=== PATIENT | male | born 1970 | race Caucasian/White ===

== ENCOUNTER 2020-10-10 06:51 | Observation (INO) | payer OTHER ==
[~2020-10-10] VITALS: Ht 185.4 cm; Wt 97.7 kg
[~2020-10-10 06:51] MED LIST: ALLO300T PO; ATOR10TA9 PO; INDO75CA3 PO; LISI-170 PO; OMEP40CA42 PO
--- NOTE | 2020-10-10 07:15 | NUR ---
first contact with pt. pt c/o left sided cp with radiating to left arm/back with sob started 6am today. denied any other symptoms. hx of htn/hld. pt's aox4. resps even and unlabored. all monitors in place. call light within reach. edmd at bedside for assessment at this time.
[2020-10-10] MEDS ORDERED: ASPIRIN 81 MG TABLET CHEW ONE (07:20)
[2020-10-10] MEDS ORDERED: NITROGLYCERIN SINGLE TAB 0.4 MG SL ONE (07:20)
[2020-10-10 07:28] LABS: BASOPHILS % (AUTO) 1 % (0-1); EOSINOPHILS % (AUTO) 6 % (1-7); LYMPHOCYTES % (AUTO) 35 % (22-44); MEAN CORPUSCULAR HEMOGLOBIN 31.6 pg (27.5-34.5); MEAN PLATELET VOLUME 6.5 fL (7.4-10.4); MONOCYTES % (AUTO) 11 % (2-9); NEUTROPHILS % (AUTO) 48 % (42-75); PLATELET COUNT 273 x10^3/uL (130-400); RED BLOOD COUNT 4.72 x10^6/uL (4.38-5.82); RED CELL DISTRIBUTION WIDTH 13.5 % (9.4-14.8)
--- NOTE | 2020-10-10 07:29 | NUR ---
pt medicated per emar for cp. pt tolerated well.
[2020-10-10] MEDS ORDERED: ASPIRIN 81 MG TABLET CHEW PO ONE (07:30)
[2020-10-10] MEDS ORDERED: SODIUM CHLORIDE FLUSH 10ML SYR IVF ONE (07:30)
[2020-10-10] MEDS ORDERED: NITROGLYCERIN SINGLE TAB 0.4 MG SL PRN (07:30)
[2020-10-10 07:31] LABS: MD NO
--- NOTE | 2020-10-10 07:31 | NUR ---
2nd ekg taken in room by emt at this time.
[2020-10-10 07:39] LABS: ALBUMIN 4.3 g/dL (3.4-5.0); ANION GAP 4 mmol/L (5-15); CALCIUM 9.7 mg/dL (8.5-10.1); CHLORIDE 106 mmol/L (98-107); CREATININE 1.14 mg/dL (0.7-1.3)
[2020-10-10 07:42] LABS: TROPONIN I < 0.015 ng/mL (0.000-0.045)
--- NOTE | 2020-10-10 07:58 | NUR ---
pt stated"i feel better. pain almost gone" pt restnig in gurney. pt's aox4. resps even and unlabored. all monitors in place. call light within reach.
[2020-10-10] MEDS ORDERED: SODIUM CHLORIDE FLUSH 10ML SYR IVF PRN (08:30)
--- NOTE | 2020-10-10 08:38 | NUR ---
piv est by emt at this time.
[2020-10-10] MEDS ORDERED: NITROGLYCERIN 0.4 MG BOTTLE (25 TABS) SL PRN (09:00)
[2020-10-10] MEDS: SODIUM CHLORIDE FLUSH 10ML SYR IVF SCH ×2 (09:00→21:00)
[2020-10-10] MEDS ORDERED: IBUPROFEN 600 MG TABLET PO PRN (09:00)
[2020-10-10] MEDS ORDERED: NITROGLYCERIN 0.4 MG/SPRAY SL PRN (09:00)
--- NOTE | 2020-10-10 09:01 | NUR ---
pt resting in [facility]. pt's aox4. resps even and unlabored. pt denies any needs or concerns at this time.
--- NOTE | 2020-10-10 09:41 | NUR ---
pt in ct at this time.
[2020-10-10] MEDS ORDERED: OMNIPAQUE 350 MG/ML, 100ML BOTTLE ONE (09:45)
--- NOTE | 2020-10-10 09:48 | NUR ---
pt back to room from ct at this time.
[2020-10-10] MEDS ORDERED: ENOXAPARIN 40 MG/0.4 ML ONE (09:52)
[2020-10-10] MEDS: ENOXAPARIN 40 MG/0.4 ML SQ SCH (09:57)
--- NOTE | 2020-10-10 09:59 | NUR ---
pt medicated per emar. pt tolerated well.
[2020-10-10 10:23] LABS: TROPONIN I < 0.015 ng/mL (0.000-0.045)
--- NOTE | 2020-10-10 10:42 | NUR ---
report given to marcio ray. all questions answered.
[2020-10-10 11:03] VITALS: BP 145/78
[2020-10-10] MEDS ORDERED: NITROGLYCERIN 0.4 MG BOTTLE (25 TABS) SL ONE ×2 (11:54→16:30)
[2020-10-10 14:20] VITALS: BP 153/98
[2020-10-10 14:30] LABS: TROPONIN I < 0.015 ng/mL (0.000-0.045)
[2020-10-10] MEDS: morphine SULFATE 10 MG/ML, 1ML IVPush PRN ×2 (18:54→22:23)
[2020-10-10 19:46] VITALS: BP 155/92
[2020-10-10] MEDS ORDERED: ATORVASTATIN 10 MG TABLET PO SCH (21:00)
[2020-10-11 00:03] VITALS: BP 128/80
[2020-10-11 05:07] LABS: ANION GAP 5 mmol/L (5-15); CALCIUM 9.1 mg/dL (8.5-10.1); CHLORIDE 104 mmol/L (98-107)
[2020-10-11 05:12] LABS: CHOL/HDL RATIO 3.4; CHOLESTEROL, TOTAL 169 mg/dL (140-239); CREATININE 1.05 mg/dL (0.7-1.3); HDL CHOL % 30 % (26-37); HDL CHOLESTEROL (DIRECT) 50 mg/dL (40-60); LDL CHOLESTEROL,CALCULATED 96 mg/dL (54-169); LDL/HDL RATIO 1.9 (0.5-3.0); TRIGLYCERIDES 116 mg/dL (50-200); VLDL CHOLESTEROL 23 mg/dL (0-25)
[2020-10-11] MEDS ORDERED: ASPIRIN 325 MG TABLET EC PO SCH (06:00)
[2020-10-11] MEDS ORDERED: OMEPRAZOLE 20 MG CAPSULE.DR PO SCH (06:00)
[2020-10-11 07:25] VITALS: BP 135/78
[2020-10-11] MEDS ORDERED: LISINOPRIL 20 MG TABLET PO SCH (09:00)
[2020-10-11] MEDS ORDERED: REGADENOSON 0.4 MG/5 ML SYRINGE ONE (09:03)
[2020-10-11] MEDS: SODIUM CHLORIDE FLUSH 10ML SYR IVF SCH (11:13)
[2020-10-11] MEDS: ENOXAPARIN 40 MG/0.4 ML SQ SCH (11:13)
[2020-10-11] MEDS ORDERED: ACID1TAB3 PO (12:40)
[2020-10-11 12:45] VITALS: BP 127/76
[2020-10-11] MEDS: MAALOX/HYOSCYAMINE/LIDOCAINE 45 ML BTL PO ONE ×2 (13:01→13:20)
== END 2020-10-11 13:45 | disposition home or self-care (01) ==
LOC: ED 07:17 → INTOOBSV 08:16 → EDIP 08:16 → 5SO 10:54 → DCLOUNGE 10-11 13:37
PROVIDERS: ADMIT Internal Medicine; ATTEND Internal Medicine
DX: R07.89 Other chest pain (principal); I10 Essential (primary) hypertension; K21.9 Gastro-esophageal reflux disease without esophagitis; E87.1 Hypo-osmolality and hyponatremia; I51.89 Other ill-defined heart diseases; E78.5 Hyperlipidemia, unspecified; J98.11 Atelectasis; Z79.899 Other long term (current) drug therapy
CPT/HCPCS: 36415; 71045; 71275; 78452; 80048; 80061; 82040; 83880; 84484; 85025; 85379; 93005; 93017; 96372; 96374; 96376; 99285; A9502; C8929; G0378; J1650; J2270; J2785; Q9957; Q9967